=== PATIENT | male | born 1950 | race Caucasian/White ===

== ENCOUNTER 2024-07-01 07:26 | Inpatient (IN) | payer SELFPAY ==
[2024-07-01] MEDS ORDERED: Glucagon 1 MG/ML KIT IM PRN (11:21)
[2024-07-01] MEDS ORDERED: Senokot S 8.6-50 MG TAB PO PRN (11:21)
[2024-07-01] MEDS ORDERED: Dextrose 5% in Water 1,000 ML IV PRN (11:21)
[2024-07-01] MEDS ORDERED: Ondansetron ODT 4 MG TAB PO PRN (11:21)
[2024-07-01] MEDS ORDERED: Dextrose 50% Abboject 50 ML SYRINGE SLOW IVP PRN (11:21)
[2024-07-01] MEDS ORDERED: Nitroglycerin 0.4 MG TAB (25 Tab Bottle) SL PRN (11:21)
[2024-07-01] MEDS ORDERED: Acetaminophen 650 MG Suppository PR PRN (11:21)
[2024-07-01] MEDS ORDERED: Ondansetron PF 4 MG/2 ML Vial IVP PRN (11:21)
[2024-07-01] MEDS ORDERED: Lorazepam 0.5 MG TAB PO PRN (11:46)
[2024-07-01 12:19] VITALS: BMI 28.7
[2024-07-01 13:10] LABS: Troponin I 7.521 ng/mL (< 0.028)
[2024-07-01] MEDS: Lorazepam 2 MG/ML VIAL SLOW IVP SCH (13:33)
[2024-07-01] MEDS ORDERED: FLU (Fluad Triv) TS24-25 (65UP)/MF59C/PF 45 MCG/0.5 ML Syringe IM ONE (14:00)
[2024-07-01 15:13] LABS: Influenza A by NAA Not Detected (NotDetected); Influenza B by NAA Not Detected (NotDetected); RSV by NAA DETECTED (NotDetected); SARS-CoV-2 NAA Rapid Test Not Detected (NotDetected)
[2024-07-01 15:56] VITALS: BMI 28.7
[2024-07-01 16:10] LABS: Troponin I 9.907 ng/mL (< 0.028)
[2024-07-01] MEDS: Enoxaparin 100 MG (1 mL) SYRINGE SC SCH (16:27)
[2024-07-01] MEDS: Pantoprazole 40 MG DR.TAB PO SCH (16:30)
[2024-07-01] MEDS: Enoxaparin 80 MG (0.8 mL) SYRINGE SC SCH (17:14)
[2024-07-01 19:16] LABS: Critical Call Chem Troponin I RESULT DECREASING; Troponin I 9.528 ng/mL (< 0.028)
[2024-07-01] MEDS: QUEtiapine 25 MG TAB PO SCH (20:27)
[2024-07-01] MEDS: Lorazepam 0.5 MG TAB PO PRN (20:27)
[2024-07-01] MEDS: Memantine 10 MG TAB PO SCH (20:27)
[2024-07-01] MEDS: Atorvastatin Calcium 40 MG TAB PO SCH (20:28)
[2024-07-01] MEDS ORDERED: Enoxaparin 100 MG (1 mL) SYRINGE SC SCH (21:00)
[2024-07-01] MEDS: Communication Order-Pharmacy FS ONE (22:36)
[2024-07-02 04:22] LABS: #Basophils 0.08 10x3/uL (0.0-0.2); %Basophils 1.1 % (0.0-1.0); %Eosinophils 3.2 % (0.0-10.0); %Lymphocytes 15.7 % (21.0-51.0); %Monocytes 12.3 % (0.0-10.0); %Neutrophils 67.3 % (42.0-75.0); Hematocrit 41.6 % (42.0-52.0); Hemoglobin 13.4 g/dL (14.0-18.0); Mean Corpuscular HGB CONC 32.2 g/dL (32.0-36.0); Mean Corpuscular Hemoglobin 28.6 pg (27.0-31.0); Mean Corpuscular Volume 88.7 fL (78.0-98.0); Mean Platelet Volume 10.2 fL (7.4-10.4); Platelet Count 250 10x3/uL (130-400); RBC Distribution Width 16.4 % (11.5-14.5); Red Blood Cell (RBC) Count 4.69 mill/uL (4.70-6.10)
[2024-07-02 04:39] LABS: Anion Gap 13 mmol/L (10-20); BUN (Urea Nitrogen) 12 mg/dL (8.4-25.7); Calc. Creatinine Clearance 86 mL/min (70-130); Calcium 9.4 mg/dL (7.8-10.44); Carbon Dioxide 25 mmol/L (23-31); Chloride 105 mmol/L (98-107); Estimated GFR 84; Glucose 101 mg/dL (83-110); Potassium 4.2 mmol/L (3.5-5.1); Sodium 139 mmol/L (136-145)
[2024-07-02] MEDS ORDERED: Clopidogrel Bisulfate 75 MG TAB PO SCH (09:00)
[2024-07-02] MEDS ORDERED: Enoxaparin 40 MG (0.4 mL) SYRINGE SC SCH (09:00)
[2024-07-02] MEDS: Lisinopril 2.5 MG TAB PO SCH (09:25)
[2024-07-02] MEDS: Clopidogrel Bisulfate 75 MG TAB PO SCH (09:25)
[2024-07-02] MEDS: Metoprolol Succinate XL 25 MG ER.TAB PO SCH (09:25)
[2024-07-02] MEDS: Donepezil HCl 10 MG TAB PO SCH (09:25)
[2024-07-02] MEDS: Pantoprazole 40 MG DR.TAB PO SCH (09:25)
[2024-07-02] MEDS: Aspirin Chewable 81 MG TAB PO SCH (09:25)
[2024-07-02] MEDS: Haloperidol Lactate 5 MG/ML VIAL ONE (17:06)
[2024-07-02] MEDS: Haloperidol Lactate 5 MG/ML VIAL SLOW IVP SCH (17:07)
[2024-07-03] MEDS: Acetaminophen 325 MG TAB PO PRN (09:39)
[2024-07-03 12:21] VITALS: BP 111/63; TEMP 98.2
[2024-07-03] MEDS ORDERED: Enoxaparin 40 MG (0.4 mL) SYRINGE SC SCH (21:00)
== END 2024-07-03 15:20 | disposition home or self-care (01) | DRG 281 ==
LOC: PCU 07:26 → OBSVTOIN 17:21 → 2SE 22:29
PROVIDERS: ADMIT Student in an Organized Health Care Education/Training Program; ATTEND Internal Medicine
DX: I21.4 Non-ST elevation (NSTEMI) myocardial infarction (principal); F03.918 Unspecified dementia, unspecified severity, with other behavioral disturbance; I10 Essential (primary) hypertension; E78.5 Hyperlipidemia, unspecified; E16.2 Hypoglycemia, unspecified; I25.5 Ischemic cardiomyopathy; I25.10 Atherosclerotic heart disease of native coronary artery without angina pectoris; I25.2 Old myocardial infarction; I73.9 Peripheral vascular disease, unspecified; G62.9 Polyneuropathy, unspecified; Z95.5 Presence of coronary angioplasty implant and graft; Z79.82 Long term (current) use of aspirin; Z79.02 Long term (current) use of antithrombotics/antiplatelets
CPT/HCPCS: 0241U; 36415; 36416; 80048; 83735; 83880; 84443; 84484; 85025; 93005; 93010; 93306; 96372; 96374; G0378; J1630; J1650; J2060

== ENCOUNTER 2024-07-22 08:41 | Emergency (ER) | payer SELFPAY ==
[2024-07-22 09:26] LABS: #Basophils 0.08 10x3/uL (0.0-0.2); %Basophils 0.9 % (0.0-1.0); %Eosinophils 3.6 % (0.0-10.0); %Lymphocytes 13.4 % (21.0-51.0); %Monocytes 10.2 % (0.0-10.0); %Neutrophils 70.6 % (42.0-75.0); Hematocrit 38.9 % (42.0-52.0); Hemoglobin 12.5 g/dL (14.0-18.0); Mean Corpuscular HGB CONC 32.1 g/dL (32.0-36.0); Mean Corpuscular Hemoglobin 28.6 pg (27.0-31.0); Mean Platelet Volume 9.9 fL (7.4-10.4); Platelet Count 204 10x3/uL (130-400); RBC Distribution Width 16.9 % (11.5-14.5); Red Blood Cell (RBC) Count 4.37 mill/uL (4.70-6.10)
[2024-07-22 09:46] LABS: ALT (SGPT) 21 U/L (Less than 45); AST (SGOT) 21 U/L (11-34); Albumin 3.3 g/dL (3.1-4.5); Alkaline Phosphatase 91 U/L (40-110); Anion Gap 10 mmol/L (10-20); BUN (Urea Nitrogen) 15 mg/dL (8.4-25.7); Bilirubin, Total 0.2 mg/dL (0.3-1.2); Calc. Creatinine Clearance 0 mL/min (70-130); Calcium 8.7 mg/dL (7.8-10.44); Carbon Dioxide 26 mmol/L (23-31); Chloride 109 mmol/L (98-107); Estimated GFR 73; Globulin 3.2 g/dL (2.4-3.5); Glucose 93 mg/dL (83-110); Potassium 4.3 mmol/L (3.5-5.1); Protein, Total 6.5 g/dL (5.8-8.1); Sodium 141 mmol/L (136-145)
[2024-07-22 09:47] LABS: Troponin I 0.046 ng/mL (< 0.028)
[2024-07-22] MEDS ORDERED: Iopamidol-370 76% 500 ML MDV (1 ML CHARGE) ONE (09:49)
[2024-07-22 10:04] LABS: Bacteria/HPF None Seen HPF (None Seen); Bilirubin Negative (Negative); Blood, Urine Negative (Negative); CAUTI Indications for Culture Pelvic or flank pain; Clarity Clear (Clear); Glucose, Urine (Dipstick) Normal (Negative); Ketone, Urine Negative (Negative); Leukocyte Negative Leu/uL (Negative); Nitrite Negative (Negative); Protein, Urine (Dipstick) 20 mg/dL (Neg-Trace); RBC/HPF 0-3 HPF (0-3); Squamous Epithelial None Seen HPF (0-3); Urobilinogen Normal mg/dL (Less than 2); WBC/HPF 0-3 HPF (0-3); pH, Urine 6.5 (5.0-9.0)
[2024-07-22 10:07] LABS: Specific Gravity, Urine 1.054 (1.002-1.036)
[2024-07-22 10:09] LABS: Urine Culture Reflex No No
[2024-07-22] MEDS ORDERED: Aspirin Chewable 81 MG TAB ONE (11:56)
[2024-07-22 13:43] LABS: Troponin I 0.051 ng/mL (< 0.028)
== END 2024-07-22 14:53 | disposition home or self-care (01) ==
LOC: ERS 08:41
DX: K59.00 Constipation, unspecified (principal); K40.90 Unilateral inguinal hernia, without obstruction or gangrene, not specified as recurrent; R79.89 Other specified abnormal findings of blood chemistry; Z55.6 Problems related to health literacy; Z79.82 Long term (current) use of aspirin
CPT/HCPCS: 36415; 71045; 74177; 80053; 81001; 84484; 85025; 93005; Q9967